=== PATIENT | male | born 2000 | race Caucasian/White ===

== ENCOUNTER 2023-03-02 11:56 | Emergency (ER) | payer SELFPAY ==
[~2023-03-02] VITALS: Ht 182.9 cm; Wt 95.7 kg
[2023-03-02 12:00] VITALS: BP_SYST 118; BP_SYST 120; BP_DIAS 59; BP_DIAS 80; PULSE 78; PULSE 84; RESP 17; RESP 20; TEMP 97.4; TEMP 97.9; O2SAT 99
[2023-03-02] MEDS ORDERED: NALO4SPR NS (12:55)
[2023-03-02] MEDS ORDERED: HYDR-637 PO (13:02)
[2023-03-02] MEDS ORDERED: CLOT1CRE90 TP (13:02)
--- NOTE | 2023-03-02 13:05 | NUR ---
Patient discharged with v/s stable. Written and verbal after care instructions given and explained. Patient alert, oriented and verbalized understanding of instructions. Ambulatory with steady gait. All questions addressed prior to discharge. ID band removed. Patient advised to follow up with PMD. Rx of CLOTRIMAZOLE, HYDROXYZINE,NARCAN given. Patient educated on indication of medication including possible reaction and side effects. Opportunity to ask questions provided and answered.
== END 2023-03-02 13:05 | disposition home or self-care (01) ==
LOC: MED 11:56
DX: T40.411A Poisoning by fentanyl or fentanyl analogs, accidental (unintentional), initial encounter (principal); F17.210 Nicotine dependence, cigarettes, uncomplicated; F12.90 Cannabis use, unspecified, uncomplicated; Z71.6 Tobacco abuse counseling; Y92.89 Other specified places as the place of occurrence of the external cause
CPT/HCPCS: 99283